=== PATIENT | female | born 1975 ===

== ENCOUNTER → 2017-06-29 | Emergency (ER) | payer OTHER ==
[~2017-06-29] VITALS: Ht 144.8 cm; Wt 120.2 kg
== END | disposition home or self-care (01) ==
LOC: ER 10:53
DX: K62.5 Hemorrhage of anus and rectum (principal); R31.9 Hematuria, unspecified

== ENCOUNTER 2018-12-29 21:28 | Emergency (ER) | payer OTHER ==
[~2018-12-29] VITALS: Ht 177.8 cm; Wt 124.7 kg
== END 2018-12-30 00:13 | disposition home or self-care (01) ==
LOC: ER 21:28
DX: M25.511 Pain in right shoulder (principal)